=== PATIENT | male | born 1985 | race Caucasian/White ===

== ENCOUNTER 2020-09-24 06:26 | Inpatient (IN) | payer OTHER, SELFPAY ==
[~2020-09-24] VITALS: Ht 170.2 cm; Wt 133.8 kg
[2020-09-24 06:33] VITALS: Ht 170.2 cm; Wt 133.8 kg
--- NOTE | 2020-09-24 07:06 | NUR ---
PT ISW ADMITTED TO ROOM 9 WITH C/O SHORTNESS OF BREATH AND NON RADIATING CHEST PAIN. PT HAS BEEN POSITIVE FOR COVID SINCE 09/19/20. PT IS OBESE AT 300 LBS.
--- NOTE | 2020-09-24 07:11 | NUR ---
PT BIB SELF C/O WORSENING DRY COUGH, BODYACHES, AND SOB X1 WEEK S/P BEING DIAGNOSED WITH COVID. PT IS AAOX4, NO DISTRESS NOTED, RESP E/U, SKIN INTACT PINK WARM AND DRY. PT SPO2 ON ROOM AIR WAS 88%. PT PLACED ON 4L VIA NC. PT NO SPO2@ 94%. PT GOWNED AND PLACED ON FULL CM, SINUS TACHYCARDIA NOTED. AWAITING MSE BY .
[2020-09-24 07:53] LABS: BASOPHIL % 0.2 % (0-2); PLATELET COUNT 281 x10^3mcL (130-400); RED CELL DISTRIBUTION WIDTH 13.3 % (11.5-14.5)
[2020-09-24 08:03] LABS: CALCIUM 8.8 mg/dL (8.5-10.1); CARBON DIOXIDE 24.2 mmol/L (21-32); CHLORIDE SERUM 98 mmol/L (98-107); CREATININE SERUM 1.1 mg/dL (0.7-1.3); GFR1 > 60 mL/min; GLUCOSE SERUM 147 mg/dL (74-106); POTASSIUM SERUM 3.5 mmol/L (3.5-5.1); SODIUM SERUM 134 mmol/L (136-145)
[2020-09-24 08:16] LABS: ALKALINE PHOSPHATASE 96 U/L (46-116); ALT/SGPT 97 U/L (16-63); AST/SGOT 39 U/L (15-37); BILIRUBIN TOTAL 0.86 mg/dL (0.20-1.00); LACTIC DEHYDROGENASE (LDH) 230 U/L (100-190); TOTAL PROTEIN, SERUM 7.7 g/dL (6.4-8.2)
[2020-09-24 08:28] LABS: C REACTIVE PROTEIN 18.9 mg/dL (<=0.9)
--- NOTE | 2020-09-24 09:00 | NUR ---
PT IN POSITION OF COMFORT IN ER [facility]. PT IS AAOX4, NO DISTRESS NOTED, RESP E/U. PT HAS URINAL AT THE BEDSIDE FOR USE. PT AWARE HE IS BEING ADMITTED. PT ON FULL CM, SINUS TACHYCARDIA NOTED, MD AWARE. WILL CONT TO MONITOR.
[2020-09-24 10:12] LABS: CHOLESTEROL/HDL RATIO 3.3
[2020-09-24 11:10] VITALS: BP 141/96
[2020-09-24 11:31] LABS: UA SPECIFIC GRAVITY 1.015 (1.005-1.035); microscopic required? YES; urine erythrocyte NEGATIVE (NEGATIVE)
--- NOTE | 2020-09-24 11:59 | NUR ---
PT HAS MEDS INFUSING AT THIS TIME, SEE EMAR, NO DISTRESS NOTED, RESP E/U. PT IS AAOX4, DENIES ANY PAIN. PT IN POSITION OF COMFORT. SAFETY PRECAUTIONS REMAIN IN PLACE, PT ON FULL CM, SINUS TACHYCARDIA NOTED, MD AWARE
--- NOTE | 2020-09-24 15:14 | NUR ---
REPORT CALLED TO [facility] ROOM IS READY PT WILL GO UP WITH CECILY MIX AND EMT VIA RAMY
--- NOTE | 2020-09-24 15:15 | NUR ---
PT A/AX4 NO RESP DISTRESS
[2020-09-24 16:00] VITALS: BP 147/93
--- NOTE | 2020-09-24 16:40 | NUR ---
PT. ARRIVED ON UNIT FROM ER AT 1545, HE IS A/OX4, DENIES PAIN OR DISCOMFORT. SOB WITH MINIMAL ACTIVITY. PLACE ON 5LNC, HOB ELEVATED. ORIENTED TO ENVIRONMENT AND USE OF CALL LIGHT. URINAL GIVEN. RESTING COMFORTABLY AT THIS TIME IN NO DISTRESS
--- NOTE | 2020-09-24 19:59 | NUR ---
AWAKE AND ALERT, ORIENTED TO NAME, PLACE, TIME AND SITUATION. SPEECH CLEAR AND APPROPRIATE. ORIENTED TO NAME, PLACE, TIME AND SITUATION. ON 6LPM OF O2 VIA NC, LUNG SOUNDS DIMINISHED TO BASES. DENIES HAVING PAIN AT THIS TIME. SALINE LOCK TO LEFT AC, FLUSHED WELL WITH 5ML NS. WITNESSED PT SIGN CONSENT FOR TRANSFUSION OF CONVLESCENT PLASMA, PT STATED PHYSICIAN HAS EXPLAINED PURPOSE OF IT, PT STATED HAS NO QUESTIONS AT THIS TIME. REINFORCED NEED TO USE CALL LIGHT TO CALL FOR ASSISTANCE. PLACED WITHIN EASY REACH.
[2020-09-24 20:37] VITALS: BP 128/84
--- NOTE | 2020-09-24 22:28 | NUR ---
CALLED PHARMACY REGARDING PENDING REMDESIVIR. PER PHARMACIST, REMDESIVIR IS SCHEDULED FOR 1700H TOMORROW.
[2020-09-25 05:04] VITALS: BP 130/86
--- NOTE | 2020-09-25 06:56 | NUR ---
AWAKE AND ALERT, STATED SLEPT WELL. BREATHING EVEN AND UNLABORED ON 6LPM OF O2 VIA NC. DENIES HAVING SHORTNESS OF BREATH. CALL LIGHT WITHIN EASY REACH.
--- NOTE | 2020-09-25 07:00 | NUR ---
REC'VD PT FROM NIGHT RN. PT RESTING IN BED, AAOX4. RES E/U, DENIES SOB ON 6 L NC. TELE MONITOR 23 SHOWING SR. IV SITE TO JOSÉ LUIS NDIAYE. NO ACUTE DISTRESS NOTED. DENIES PAIN/DISCOMFORT. ENCOURAGE PT TO PRONE TOLERATED.
--- NOTE | 2020-09-25 07:07 | NUR ---
IN NO ACUTE DISTRESS. ENDORSED TO NURSE HUSSAIN
[2020-09-25 07:55] LABS: BASOPHIL % 0.2 % (0-2); PLATELET COUNT 313 x10^3mcL (130-400); RED CELL DISTRIBUTION WIDTH 13.3 % (11.5-14.5)
[2020-09-25 08:21] LABS: ALBUMIN 2.9 g/dL (3.4-5.0); ALKALINE PHOSPHATASE 117 U/L (46-116); ALT/SGPT 142 U/L (16-63); AST/SGOT 64 U/L (15-37); BILIRUBIN DIRECT 0.21 mg/dL (0.0-0.2); BILIRUBIN TOTAL 0.5 mg/dL (0.20-1.00); CALCIUM 9.6 mg/dL (8.5-10.1); CARBON DIOXIDE 28.2 mmol/L (21-32); CHLORIDE SERUM 99 mmol/L (98-107); CREATININE SERUM 1.1 mg/dL (0.7-1.3); GFR1 > 60 mL/min; GLUCOSE SERUM 208 mg/dL (74-106); POTASSIUM SERUM 4.9 mmol/L (3.5-5.1); SODIUM SERUM 137 mmol/L (136-145); TOTAL PROTEIN, SERUM 7.9 g/dL (6.4-8.2)
[2020-09-25 08:58] VITALS: BP 117/76
[2020-09-25 12:21] VITALS: BP 132/85
--- NOTE | 2020-09-25 12:26 | NUR ---
PROVIDED DIABETIC TEACHING, INCLUDING ACTIVITY, DIET, S/S OF HYPOGLYCEMIA/HYPERGLYCEMIA.
--- NOTE | 2020-09-25 18:49 | NUR ---
PT SITTING IN CHAIR. NO SIGNIFICANT CHANGES NOTED. NO ACUTE DISTRESS NOTED. REMDISIVIR INFUSING TO RAC W NO S/S OF INFILTRATION NOTED. PROVIDED PT PILLOWS TO ENCOURAGE PT TO PRONE.
[2020-09-25 19:14] VITALS: BP 130/84
--- NOTE | 2020-09-25 20:00 | NUR ---
RECEIVED REPORT TO OUTGOING NURSE KAT HI .PATITENT AWAKE,ALERT,AND ORIENTED.SKIN WARM AND DRY TO TOUCH.ON O2 AT 6L/MIN VIA N/C FOR SOB WITH GOOD RELIEF WITH O2 SAT. 90-92%. LUNGS SOUND DIMINISHED UPON AUSCULTATION.ON NSR TELE #23 ON TELE MONITOR.ABLE TO AMBULATE TO THE BATHROOM WITH SLOW STEADY GAIT.HAD EPISODE OF C/O BACKPAI BUT TOLERABLE AT THIS TIME 12/25.ENCOURAGED TO CALL CARRI ASSISTANCE NEEDED .ENCOURAGED PATIENT TO PRONE POSITION.CALL LIGHT WITHIN REACH.
[2020-09-25 21:15] VITALS: BP 108/67
--- NOTE | 2020-09-26 02:34 | NUR ---
RECEIVED CONVALESCENT PLASMA 1 UNIT IV ORDERED WITH NO ADVERSE REACTION. PATIENT REMAINED ON PRONING POSITION. DENIES PAIN AND DISCOMFORT .CALL LIGHT WITHIN REACH.
[2020-09-26 05:42] VITALS: BP 109/57
--- NOTE | 2020-09-26 07:00 | NUR ---
REC'VD PT FROM NIGHT RN. PT RESTING IN BED WITH EYES CLOSED, IN PRONE POSITION. EASILY AROUSABLE. AAOX4. RES E/U, ON 6 L NC. TELE MONITOR 23 SHOWING SR. NO ACUTE DISTRESS NOTED. IV TO RAC SL, PATENT AND CDI
[2020-09-26 08:00] VITALS: BP 112/70
[2020-09-26 08:35] LABS: BASOPHIL % 0.5 % (0-2); RED CELL DISTRIBUTION WIDTH 12.4 % (11.5-14.5)
[2020-09-26 08:44] VITALS: BP 112/70
[2020-09-26 08:44] LABS: ALKALINE PHOSPHATASE 116 U/L (46-116); ALT/SGPT 188 U/L (16-63); AST/SGOT 88 U/L (15-37); BILIRUBIN DIRECT 0.18 mg/dL (0.0-0.2); BILIRUBIN TOTAL 0.4 mg/dL (0.20-1.00); C REACTIVE PROTEIN 8.9 mg/dL (<=0.9); CALCIUM 9.2 mg/dL (8.5-10.1); CARBON DIOXIDE 27.3 mmol/L (21-32); CHLORIDE SERUM 101 mmol/L (98-107); CREATININE SERUM 1.2 mg/dL (0.7-1.3); GFR1 > 60 mL/min; GLUCOSE SERUM 172 mg/dL (74-106); POTASSIUM SERUM 4.3 mmol/L (3.5-5.1); SODIUM SERUM 141 mmol/L (136-145); TOTAL PROTEIN, SERUM 7.7 g/dL (6.4-8.2)
[2020-09-26 08:45] LABS: PLATELET COUNT 436 x10^3mcL (130-400)
[2020-09-26 08:58] LABS: ALBUMIN 2.9 g/dL (3.4-5.0)
[2020-09-26 12:01] VITALS: BP 104/68
--- NOTE | 2020-09-26 13:39 | NUR ---
TITRATED PT DOWN FROM 6LPM DOWN TO 4LPM. PT TOLERTING WELL WITH NO INCREAED WOB OR SOB NOTED AT THIS TIME
--- NOTE | 2020-09-26 14:51 | NUR ---
IV SITE TO LAC INFILTRATED. IV SITE REMOVED AND CATHETER INTACT. INSERTED A 22 G IV TO R FA, FLUSHED AND PATENT.
[2020-09-26 16:08] VITALS: BP 107/70
--- NOTE | 2020-09-26 18:11 | NUR ---
AT 1400 - CALLED , DONALD, REGARDING PATIENT'S UPDATE. PROVIDED UPDATE THAT PATIENT'S OXYGENATION IS 4 L NC WITH O2 SATURATING IN 90'S. ALSO, PROVIDED UPDATE THAT PATIENT IS COMPLIANT WITH PRONE POSITIONING, INCENTIVE SPIROMETER, AND AMBULATING TOLERATED TO IMPROVE OXYGENATION. SEEMED APPRECIATIVE OF UPDATE
--- NOTE | 2020-09-26 18:27 | NUR ---
PT C/O BACK PAIN, GIVEN NORCO PER EMAR
--- NOTE | 2020-09-26 19:01 | NUR ---
PT SITTING UP ON SIDE OF THE BED USING CELL PHONE. NO ACUTE DISTRESS NOTED. NO SIGNIFICANT CHANGES NOTED. WILL ENDORSE CARE TO NEXT SHIFT
[2020-09-26 21:36] VITALS: BP 106/67
--- NOTE | 2020-09-26 22:40 | NUR ---
1900 PATIENT RECEIVED SITTING AT THE SIDE OF THE BED, DENIES PAIN OR DISCOMFORT. ON 02 N/C AT 4L. AMBULATES TO BATHROOM NEEDED. ENCOURAGED TO PRONE IN BED, VERBALIZED UNDERSTANDING.
[2020-09-27 06:08] VITALS: BP 107/59
--- NOTE | 2020-09-27 07:25 | NUR ---
RECEIVED PT FROM DIRECTOR OF PUBLICATIONS NURSE. TELE# 23, SR. SLEEPING ON R SIDE, EASILY AROUSABLE TO VOICE. AAOX4. BREATHING EVEN/UNLABORED ON 4 L NC, IN NO ACUTE RESP DSITRESS AT THIS TIME. PT REPORTS FEELING SOB WHEN AMBULATING TO BR. PT ENCOURAGED TO PRONE, STATES HE HAS BEEN PRONING ALL NIGHT. GEN WEAKNESS NOTED DUE TO COVID BUT PT IS AMBULATORY. SKIN WARM,DRY, INTACT. PT REPORTS NO PAIN. IV TO RFA PATENT, CDI. WILL CONT TO MONITOR.
[2020-09-27 08:12] VITALS: BP 112/54
[2020-09-27 08:40] LABS: BILIRUBIN DIRECT 0.24 mg/dL (0.0-0.2); BILIRUBIN TOTAL 0.5 mg/dL (0.20-1.00); TOTAL PROTEIN, SERUM 6.7 g/dL (6.4-8.2)
[2020-09-27 08:42] LABS: CALCIUM 9.5 mg/dL (8.5-10.1); CARBON DIOXIDE 25.3 mmol/L (21-32); CHLORIDE SERUM 103 mmol/L (98-107); CREATININE SERUM 1.2 mg/dL (0.7-1.3); GFR1 > 60 mL/min; GLUCOSE SERUM 148 mg/dL (74-106); SODIUM SERUM 140 mmol/L (136-145)
--- NOTE | 2020-09-27 11:40 | NUR ---
CHECKED BS, WAS 185, GAVE 3 UNITS REG INSULIN PER SLIDING SCALE. PT TOLERATED WELL. PT SITTING UP ON SIDE OF BED, REPORTS NO SOB/PAIN. PT STILL BREATHING EVEN/UNLABORED ON 4 L NC, IN NO ACUTE RESP DISTRESS AT THIS TIME. ALL NEEDS MET. WILL CONT TO MONITOR.
[2020-09-27 12:07] LABS: BASOPHIL % 0.4 % (0.2-1.5); RED CELL DISTRIBUTION WIDTH 13.1 % (12.1-16.2)
[2020-09-27 12:33] VITALS: BP 123/76
[2020-09-27 12:44] LABS: PLATELET COUNT 525 x10^3mcL (152-348)
--- NOTE | 2020-09-27 16:01 | NUR ---
Initial Nutrition Assessment: [address] 35M HR Dx: COVID-19, PNA, Hypoxia, New Onset DM PMHx: none PSHx: none Labs: (09/27) BG 148H, BUN 27.0H, ALB 3.0L, AST 42H, ALT 153H, ALK 103H, PLT 436H, Neut%77.6H, (09/24) D-DIMER 319H, LDH 230H, HDL 36L, * rest of lipid panel wnl, HbA1C 6.8H Meds: Humulin R, Lovenox, [place], Remdeservir, Zinc Sulfate, Vitamin C, Vitamin D, Colace, Decadron, Ventolin, Dextrose 50%, Zofran Diet: CCHO 60 g diet PO intake since admission: (09/24) D: 90%, (09/25) B: 100%, D: 100%, Average 97% x 3 meals Ht: 170 cm/67 in Wt: 133.81 kg/294 lbs BMI: 46.2 kg/m2 Bed scale: unable to assess d/t isolation IBW: 67 kg/148 lbs %IBW: 199% ABW: 84 kg/184 lbs UBW: unknown Age: 35 y/o Food Allergies: unknown Edema: no noted Last BM: 09/26 per RN Skin: intact Nick: 20 Per H and P (09/24): 35-year-old male who states he got sick on 09/16/2020. He had initial fever and body aches. In the last 3 days he has developed shortness of breath, discoloration. He denies any loss of taste or smell, headaches, sore throat, vomiting, diarrhea. He states many family members at home were positive for coronavirus. He got a test done with positive results on 09/19/2020. Pt was admitted with dx: Acute respiratory distress 2/2 COVID 19 +, DM, A1C 6.8, Transaminitis likely 2/2, COVID infection, Mild protein calorie malnutrition, Obesity BMI 48.4, DVT Pp RD Note (09/27): Per progress note (09/27): Patient is COVID positive currently on 3 LPM via NC today. Patient is also new onset diabetes with A1c 6.8. Home O2 eval pending. Unable to visit pt d/t isolation, unable to contact pt via bedside pt's phone. Pt's RN reported that pt's appetite is good, and pt is tolerating his diet well. No n/v/d/c noted by RN, and last BM was yesterday per RN. Additionally, current pt's PO intake is 97%, meeting 75% energy needs and 92% protein needs. Problem with: N/V/D/C: none per RN Problems with: Chewing: Swallowing: none per RN Current appetite: good per RN Recent wt change: unknown %wt change: n/a Height: unknown Vitamin/Supplement use: unknown Special diet at home: unknown Physical activity: unknown Nutrition education given (specify specific nutrition education and handout given): Written material: "Carbohydrate Counting for People with Diabetes," and "Diabetes Label Readings Tips" from [facility] were provided to pt's RN for the pt. Food-drug interactions? Education given? n/a Estimated Nutritional Needs Based on adjusted body weight (84 kg) Energy: 2100 - 2520 kcal/day (25 - 30 kcal/kg for viral infection and weight reduction) Protein: 101 - 126 g/day (1.2 - 1.5 g/kg for viral infection and weight reduction) Fluid: 2100 - 2520 mL/day (1 mL/kcal) Nutrition Diagnosis: 1. Increased energy and protein needs r/t viral infection a/e/b pt was admitted for COVI-19 positive. 2. Altered related lab values r/t new onset DM a/e/b BG 148H and HbA1C 6.8%. 3. Obesity r/t pathophysiological causes a/e/b BMI: 46.2 kg/m2 Intervention 1. Recommend continue CCHO 60 g diet as tolerated. Monitor/Evaluate Goal: PO intake at least 75% of estimated needs Monitor: PO intake, Labs, GI function, Body Weight. F/U in 3-5 days as moderate risk 09/30-16
--- NOTE | 2020-09-27 16:02 | NUR ---
1. Recommend continue CCHO 60 g diet as tolerated.
--- NOTE | 2020-09-27 16:16 | NUR ---
DIETITIAN CO-SIGN The Nutrition Notes documented by the Dog Bather have been reviewed. Reviewed/Co-Signed by: Sidney Aparicio Documentation Done by: Diane Braun
[2020-09-27 16:34] VITALS: BP 113/64
--- NOTE | 2020-09-27 16:43 | NUR ---
CHECKED BS, WAS 240, GAVE 6 UNITS PER SLIDING SCALE. PT TOLERATED WELL. PT AAOX4, PT BREATHING EVEN/UNLABORED ON 3 L NC. PT IN PRONE POSITION, IN NO ACUTE RESP DISTRESS AT THIS TIME. ALL NEEDS MET. WILL CONT TO MONITOR.
--- NOTE | 2020-09-27 18:35 | NUR ---
PT SITTING UP AT SIDE OF BED, AAOX4. BREATHING EVEN/UNLABORED ON 3 L NC. IN NO ACUTE RESP DISTRESS AT THIS TIME. PT REPORTS NO PAIN/SOB. IV RFA PATENT, CDI. ALL NEEDS MET. WILL ENDORSE TO SUPERINTENDENT METER TESTS NURSE.
[2020-09-27 20:59] VITALS: BP 105/54
--- NOTE | 2020-09-27 23:32 | NUR ---
PATIENT ALERT AND RESPONSIVE, AMBULATORY, ON 02 VIA N/C AT 3L, 02 SAT 93%. GIVEN ACETAMINOPHEN FOR GENERALIZED BODY ACHES. CALL HERNANDEZ WITH IN REACH. BED IN LOW POSITION.
[2020-09-28 05:34] VITALS: BP 105/55
--- NOTE | 2020-09-28 07:30 | NUR ---
RECEIVED PT FROM CRIMINAL JUSTICE DEPARTMENT CHAIR NURSE. TELE # 23, SR. PT IN PRONE POSITION SLEEPING, EASILY AROUSABLE, AAOX4. BREATHING EVEN/UNLABORED ON 3 L NC, IN NO ACUTE RESP DISTRESS. GEN WEAKNESS NOTED, PT IS AMBULATORY. SKIN INTACT. PT REPOTRS NO SOB/PAIN AT THIS TIME. IV TO RFA PATENT, CDI, SL. NO CONCERNS/DISTRESS VERBLIZED AT THIS TIME. BED IN LOWEST POSITION, CALL LIGHT IN REACH. CONT CURRENT PLAN OF CARE.
[2020-09-28 07:57] VITALS: BP 120/74
[2020-09-28 07:59] LABS: BASOPHIL % 0.2 % (0.2-1.5); RED CELL DISTRIBUTION WIDTH 12.9 % (12.1-16.2)
[2020-09-28 08:17] LABS: C REACTIVE PROTEIN 2.3 mg/dL (<=0.9); CALCIUM 9.3 mg/dL (8.5-10.1); CARBON DIOXIDE 27.5 mmol/L (21-32); CHLORIDE SERUM 100 mmol/L (98-107); CREATININE SERUM 1.1 mg/dL (0.7-1.3); GFR1 > 60 mL/min; GLUCOSE SERUM 127 mg/dL (74-106); POTASSIUM SERUM 4.5 mmol/L (3.5-5.1); SODIUM SERUM 136 mmol/L (136-145)
--- NOTE | 2020-09-28 12:05 | NUR ---
CHECKED BS, WAS 160, GAVE REG 3 UNITS INSULIN PER SLIDING SCALE. PT SITTING UP ON SIDE OF BED, BREATHING EVEN/UNLABORED ON 3 L NC. IN NO ACUTE RESP DISTRESS AT THIS TIME. NO FURTHER CONCERNS VOICED AT THIS TIME. CONT CURRENT PLAN OF CARE.
[2020-09-28 12:18] VITALS: BP 109/80
[2020-09-28 14:50] VITALS: BP 112/79
[2020-09-28 15:10] LABS: PLATELET COUNT 563 x10^3mcL (152-348)
[2020-09-28 16:44] VITALS: BP 100/45
[2020-09-28 17:35] LABS: BILIRUBIN DIRECT 0.18 mg/dL (0.0-0.2); BILIRUBIN TOTAL 0.5 mg/dL (0.20-1.00); TOTAL PROTEIN, SERUM 7.5 g/dL (6.4-8.2)
[2020-09-28 17:45] LABS: ALBUMIN 3.2 g/dL (3.4-5.0)
--- NOTE | 2020-09-28 18:50 | NUR ---
PT SITTING UP AT BEDSIDE ON PHONE, AAOX4. BREATHING EVEN/UNABORED ON 3 L NC. IN NO ACUTE RESP DISTRESS. PT REPORTS NO PAIN/SOB AT THIS TIME. PT REQUESTING SLEEP TIME AID, NO FURTHER CONCERNS VOICED. IV TO RFA PATENT, CDI. WILL ENDORSE TO BRAILLE TYPIST NURSE.
[2020-09-28 21:43] VITALS: BP 118/79
--- NOTE | 2020-09-28 23:33 | NUR ---
PATIENT RESTING IN BED. PATIENT VERBALIZED THAT HE IS FEELING BETTER. 02 REMAINS AT 3L N/C 02 SAT 93%-95%. PT REQUESTED SLEEPING MEDICATION, MD NOTIFIED, NEW ORDER RECEIVED NOTED AND CARRIED OUT. CALL HERNANDEZ WITH IN REACH. BED IN LOW POSITION.
[2020-09-29 06:34] VITALS: BP 108/69
--- NOTE | 2020-09-29 06:48 | NUR ---
PATIENT WASHED UP AND BED LINEN CHANGED.
--- NOTE | 2020-09-29 07:24 | NUR ---
RECIEVED PT FROM BITUMINOUS DISTRIBUTOR OPERATOR NURSE. TELE #23, SR. AAOX4, CALM AND COOPERATIVE. BREATHING EVEN/UNLABORED ON 3 L NC, IN NO ACUTE RESP DISTRESS. PT REPORTS SOB WHEN AMBULATING ONLY, PT ENCOURAGED TO PRONE WHEN IN BED. PT VOIDS PER BRP. GEN WEAKNESS NOTED, PT AMBULATORY. SKIN INTACT. PT REPORTS NO PAIN/SOB AT THIS TIME, NO FURTHER CONCERNS VOICED AT THIS TIME. IV TO L HAND PATENT, CDI. BED IN LOWEST POSITION, CALL LIGHT IN REACH. CONT CURRENT PLAN OF CARE.
[2020-09-29 07:36] LABS: CALCIUM 9.2 mg/dL (8.5-10.1); CHLORIDE SERUM 103 mmol/L (98-107); CREATININE SERUM 1.1 mg/dL (0.7-1.3); GFR1 > 60 mL/min; GLUCOSE SERUM 123 mg/dL (74-106); POTASSIUM SERUM 4.8 mmol/L (3.5-5.1); SODIUM SERUM 139 mmol/L (136-145)
[2020-09-29 08:40] VITALS: BP 121/67
[2020-09-29 09:11] LABS: BILIRUBIN DIRECT 0.18 mg/dL (0.0-0.2); BILIRUBIN TOTAL 0.59 mg/dL (0.20-1.00); TOTAL PROTEIN, SERUM 6.9 g/dL (6.4-8.2)
[2020-09-29 09:19] LABS: ALBUMIN 2.8 g/dL (3.4-5.0)
--- NOTE | 2020-09-29 09:53 | NUR ---
PT O2 SAT 98% ON 3L NC, TITRATED O2 DOWN TO 2 L NC. PT O2 SAT NOW 94%. PT BREATHING EVEN/UNLABORED, IN DENYS CUTE RESP DISTRESS. PT REPORTS NO SOB AT THIS TIME. CONT CURRENT PLAN OF CARE.
--- NOTE | 2020-09-29 12:00 | NUR ---
CHECKED BS, WAS 185, GAVE 3 UNITS REG INSULIN PER SLIDING SCALE. PT TOLERATED WELL. PT AAOX4, BREATHING EVEN/UNLABORED ON 2 L NC. IN NO ACUTE RESP DISTRESS AT THIS TIME. PT REPORTS NO PAIN/SOB, NO FURTHER CONCERNS VOICED AT THIS TIME. CONT CURRENT PLAN OF CARE.
[2020-09-29 12:37] VITALS: BP 125/78
[2020-09-29 15:06] LABS: RED CELL DISTRIBUTION WIDTH 12.8 % (12.1-16.2)
[2020-09-29 15:18] LABS: PLATELET COUNT 597 x10^3mcL (152-348)
[2020-09-29 16:08] LABS: BAND NEUTROPHIL 1 % (0-10); SEGMENTED NEUTROPHILS 71 % (37-75)
[2020-09-29 16:09] LABS: BASOPHIL 1 % (0-2); MONOCYTE 10 % (0-7); rbc morphology (normal/abnorm) NORMAL (NORMAL)
[2020-09-29 16:10] LABS: PLATELET MORPHOLOGY PLATELETS INCREASED
[2020-09-29 16:19] VITALS: BP 132/83
--- NOTE | 2020-09-29 17:03 | NUR ---
CHECKED BS, WAS 226, GAVE 6 UNITS REG INSULIN PER SLIDING SCALE. PT TOLERATED WELL. AAOX4, PT SITTING UP ON SIDE OF BED ON PHONE. PT REPORTS NO PAIN/SOB AT THIS TIME, NO FURTHER CONCERNS VOICED. CONT CURRENT PLAN OF CARE.
[2020-09-29 21:26] VITALS: BP 105/68
--- NOTE | 2020-09-30 03:46 | NUR ---
PATIENT ALERT AND RESPONSIVE, ON 02 2L N/C, 02 SAT 96%. PATIENT AMBULATORY, SELF CARE. PATIENT PRONING. CALL HERNANDEZ WITH IN REACH. BED IN LOW POSITION.
[2020-09-30 06:13] VITALS: BP 111/78
--- NOTE | 2020-09-30 07:15 | NUR ---
RECEIVED REPORT FROM AIX ADMINISTRATOR RN. PT IN BED ASLEEP AT THE TIME, EASILY AROUSABLE. ON DROPLET PRECAUTION FOR COVID19, ON 2LPM VIA NC, NO ACUTE RESPIRATORY DISTRESS. ON TELE 23, DENIES CHEST PAIN/PRESSURE. IV SITE TO SALINE LOCK. BED IN LOWEST POSITION. CALL LIGHT WITHIN REACH. WILL CONTINUE TO MONITOR.
[2020-09-30 09:02] VITALS: BP 117/60
[2020-09-30 09:08] LABS: BASOPHIL % 0.1 % (0.2-1.5); RED CELL DISTRIBUTION WIDTH 12.9 % (12.1-16.2)
[2020-09-30 09:15] LABS: C REACTIVE PROTEIN 0.9 mg/dL (<=0.9); CALCIUM 8.6 mg/dL (8.5-10.1); CARBON DIOXIDE 26.9 mmol/L (21-32); CHLORIDE SERUM 100 mmol/L (98-107); CREATININE SERUM 1.1 mg/dL (0.7-1.3); GFR1 > 60 mL/min; GLUCOSE SERUM 114 mg/dL (74-106); POTASSIUM SERUM 4.2 mmol/L (3.5-5.1); SODIUM SERUM 135 mmol/L (136-145)
[2020-09-30] MEDS ORDERED: VENTOLIN H0.09 MG/A1 INH (09:16)
[2020-09-30] MEDS ORDERED: VITC PO (09:17)
[2020-09-30] MEDS ORDERED: ZINC SULFATE220 MG PO (09:17)
[2020-09-30] MEDS ORDERED: ELIQUIS2.5 MG PO (09:18)
[2020-09-30] MEDS ORDERED: D-10001 TAB PO (09:18)
[2020-09-30 11:50] LABS: PLATELET COUNT 634 x10^3mcL (152-348)
[2020-09-30 13:41] VITALS: BP 110/63
[2020-09-30 15:50] VITALS: BP 110/63
[2020-09-30 17:02] VITALS: BP 103/72
--- NOTE | 2020-09-30 19:20 | NUR ---
PT IN BED AWAKE AND ALERT. ON 2LPM, NO ACUTE RESPIRATORY DISTRESS. IV SITE TO SALINE LOCK. ON TELE 23. DENIES PAIN OR DISCOMFORT AT THIS TIME. BED IN LOWEST POSITION. CALL LIGHT WITHIN REACH. PENDING DISCHARGE, PT IS WAITING FOR HOME 02 TO BE DELIVERED. ENDORSE ADDITIONAL CARE TO INCOMING RN.
== END 2020-09-30 19:35 | disposition home or self-care (01) | DRG 177 ==
LOC: ED 06:26 → DU 08:46
PROVIDERS: Emergency Medicine; Internal Medicine Infectious Disease; ADMIT Family Medicine; ATTEND Family Medicine
PROC: XW033E5 Introduction of Remdesivir Anti-infective into Peripheral Vein, Percutaneous Approach, New Technology Group 5 (ICD-10-PCS; 2020-09-25)
PROC: XW13325 Transfusion of Convalescent Plasma (Nonautologous) into Peripheral Vein, Percutaneous Approach, New Technology Group 5 (ICD-10-PCS; principal; 2020-09-26)
DX: U07.1 COVID-19 (principal); J12.89 Other viral pneumonia; J96.01 Acute respiratory failure with hypoxia; E44.1 Mild protein-calorie malnutrition; Z68.42 Body mass index [BMI] 45.0-49.9, adult; E66.9 Obesity, unspecified; E11.9 Type 2 diabetes mellitus without complications
CPT/HCPCS: 36600; 82962; 83880; 85378; 87804; G0378; J0456; J0696; J1100; J1650; J1815; J3535; J7030; J7050; U0003